=== PATIENT | female | born 1940 | race Caucasian/White ===

== ENCOUNTER 2024-04-12 20:35 | Emergency (ER) | payer MEDICARE ==
[2024-04-12 21:13] LABS: VENOUS BASE EXCESS -7.6 (-2.0-2.0); VENOUS HCO3 20.4 MMOL/L (23.0-27.0); VENOUS O2 SATURATION 37.1 % (60.0-80.0); VENOUS PARTIAL PRESSURE CO2 50.1 mmHg (38.0-50.0); VENOUS PARTIAL PRESSURE O2 25.7 mmHg (30.0-50.0); VENOUS PH 7.227 UNITS (7.330-7.430); VENOUS TOTAL CO2 21.9 MMOL/L (24.0-28.0)
[2024-04-12 21:20] LABS: HEMATOCRIT 49.9 % (36.0-47.0); HEMOGLOBIN 16.5 g/dl (12.0-15.5); MEAN CORPUSCULAR HEMOGLOBIN 30.2 pg (27.0-33.0); MEAN CORPUSCULAR HGB CONC 33.1 g/dl (32.0-36.5); MEAN CORPUSCULAR VOLUME 91.2 fl (80.0-96.0); PLATELET COUNT, AUTOMATED 387 10^3/uL (150-450); RED BLOOD COUNT 5.47 10^6/uL (4.00-5.40)
[2024-04-12] MEDS: IPRATROPIUM 0.5MG/ALBUTEROL 2.5MG INH SOL UD 3ML (DUONEB) NEB ONE (21:23)
[2024-04-12] MEDS: IPRATROPIUM 0.5MG/ALBUTEROL 2.5MG INH SOL UD 3ML (DUONEB) NEB PRN (21:23)
[2024-04-12 21:28] VITALS: TEMP 98.6
[2024-04-12] MEDS: NS 500 ML IV ONE (21:45)
[2024-04-12 21:46] LABS: THYROXINE (T4) 9.3 UG/DL (4.5-10.9)
[2024-04-12 21:47] LABS: THYROID STIMULATING HORMONE 6.304 uIU/ML (0.55-4.78)
[2024-04-12 21:50] LABS: ALBUMIN 2.8 G/DL (3.2-5.2); ALKALINE PHOSPHATASE 113 U/L (46-116); ALT/SGPT 12 U/L (7.0-40); AST/SGOT 32 U/L (<34); BILIRUBIN,TOTAL 1.8 MG/DL (0.3-1.2); BLOOD UREA NITROGEN 28 MG/DL (9-23); CALCIUM LEVEL 8.3 MG/DL (8.3-10.6); CARBON DIOXIDE LEVEL 23 MMOL/L (20-31); CHLORIDE LEVEL 99 MMOL/L (98-107); CK-MB VALUE MASS < 1.0 NG/ML (<3.6); CPK CREATINE PHOSPHOKINASE 151 U/L (34-145); CREATININE FOR GFR 1.66 MG/DL (0.55-1.30); GLOMERULAR FILTRATION RATE 31.3 (>32); GLUCOSE, FASTING 95 MG/DL (74-106); MB/CK RELATIVE INDEX 0.66 (< OR =4); POTASSIUM SERUM 5.1 MMOL/L (3.5-5.1); SODIUM LEVEL 133 MMOL/L (136-145); TOTAL PROTEIN 6.3 G/DL (5.7-8.2)
[2024-04-12] MEDS ORDERED: ISOVUE-370 76% 100ML VIAL As Ordered ONE (21:52)
[2024-04-12] MEDS: NS IV ONE (21:55)
[2024-04-12 22:05] VITALS: BP 91/43
[2024-04-12] MEDS: NOREPINEPHRINE 4MG IN D5 250ML 4 MG in IV 1 EA IV SCH (22:15)
[2024-04-12 22:20] VITALS: O2SAT 84
[2024-04-12 22:21] LABS: ATYPICAL LYMPH 4 % (0-5); EOSINOPHILS 1 % (0-3); LYMPHOCYTES 35 % (16-44); MONOCYTES 13 % (0-5); NEUTROPHILS 24 % (28-66)
[2024-04-12 22:22] LABS: PLATELET ESTIMATE NORMAL (NORMAL); POLYCHROMASIA 1+
[2024-04-12 22:23] LABS: ANISOCYTOSIS 1+; BURR CELLS 1+; POIKILOCYTOSIS 1+
[2024-04-12] MEDS: LIDOCAINE 2% 5ML JELLY UROJET TOP ONE (22:30)
[2024-04-12] MEDS: CEFEPIME HCL 2 GM in D5W MINI-BAG PLUS 50 ML IV ONE (22:30)
== END 2024-04-13 02:39 | disposition expired ==
LOC: M ED 20:35
DX: J96.00 Acute respiratory failure, unspecified whether with hypoxia or hypercapnia (principal); I46.8 Cardiac arrest due to other underlying condition; J44.9 Chronic obstructive pulmonary disease, unspecified; R94.31 Abnormal electrocardiogram [ECG] [EKG]